=== PATIENT | male | born 1935 | race Caucasian/White ===

== ENCOUNTER 2019-03-24 11:26 | Inpatient (IN) | payer MEDICARE, OTHER ==
[~2019-03-24] VITALS: Ht 162.6 cm; Wt 91.1 kg
[2019-03-24 13:16] VITALS: BP 141/72
[2019-03-24] MEDS ORDERED: GLUCOSE 4 GM CHEW TABLET PO PRN (14:00)
[2019-03-24] MEDS ORDERED: GLUCAGON FOR INJ 1 MG VIAL (J1610) SC PRN (14:00)
[2019-03-24] MEDS ORDERED: DEXTROSE 50% 50 ML SYRINGE IV PRN (14:00)
--- NOTE | 2019-03-24 14:19 | HPE ---
DATE OF ADMISSION: 03/24/2019 PRIMARY CARE PROVIDER: Tito Santana MD ATTENDING PHYSICIAN: Hospitalist group. NURSE FIRST AID: Jesus Reyez MD, vascular surgery. CHIEF COMPLAINT: Ischemic 5th toe right foot with cellulitis. HISTORY: Patient is transferred to [facility] for vascular surgery consultation. He has ischemic right 5th toe with secondary cellulitis for which he is currently on Unasyn. He has a medical history significant for aortic valve prosthesis, his records from [facility] do not indicate whether it is mechanical or vinyl prosthetic. He is on warfarin therapy. He has a history of atrial fibrillation, chronic obstructive pulmonary disease (COPD), hyperlipidemia, history of gout, type 2 diabetes. SURGICAL HISTORY: Pacemaker, atrioventricular (AV) job ablation. SOCIAL HISTORY: Half-pack per day smoker. FAMILY HISTORY: Both parents had heart disease. MEDICATIONS: Current medications from [facility] are: - Unasyn 1.5 grams every 6 hours - Protonix 40 mg daily - simvastatin 20 mg daily - allopurinol 300 mg daily - Lopressor 25 mg twice a day - amlodipine 5 mg daily - Spiriva inhalation daily - magnesium oxide 400 mg daily - levothyroxine 50 mcg daily - warfarin 3 mg daily - glimepiride 2 mg daily - Bumex 1 mg daily - potassium chloride 20 mEq twice a day - sliding scale insulin ALLERGIES: None known. REVIEW OF SYSTEMS: No fever, chills, night sweats, chest pain, shortness of breath, or orthopnea. PHYSICAL EXAMINATION: He is alert, conversant, no distress. Pupils equal, round, reactive to light. Tympanic membranes (TMs) and oropharynx benign. Neck: No masses. Lungs: Clear. Heart: Irregular rate and rhythm, 1/6 systolic ejection murmur. Abdomen: Soft, nontender, no masses. Trace peripheral edema. He has no palpable pulse in his right foot. There is an ischemic ulcer of the right 5th toe. There is erythema extending to the forefoot. LABORATORY DATA: All of the [facility] labs are pending. He had a CT of the right foot that showed no signs of osteomyelitis. He had a CT of the chest done, showed a small layering right pleural effusion, emphysema, cardiomegaly, 5.5 cm ascending thoracic aortic aneurysm, larger than previous CT scan from 08/20/2015 where it was 5.2 cm. Today his white count at [facility] was 6.9, hemoglobin 12.7, platelets 174, sodium 141, potassium 3.4, BUN 24, creatinine 1.4, GFR in the 50s, hemoglobin A1c was 8.2%, magnesium 1.9. PTT today was 2.3, yesterday it was 2.7, the day before 2.59. He has been maintained on his warfarin 3 mg daily. Cultures shows coagulase negative Staphylococcus. EKG today showed paced rhythm. IMPRESSION: 1. Ischemic right 5th toe secondary to cellulitis. Dr. Reyez has been consulted. We have communicated. Would like him nothing by mouth after midnight. Hold his warfarin. He will see him in consultation. I have changed the antibiotic to ceftaroline, better coverage of methicillin-resistant Staphylococcus aureus (MRSA). 2. Hypertensive heart disease. Continue his current medications. 3. Diabetes. Holding his glimepiride. He will be sliding scale insulin with finger stick blood sugar coverage for now. He could restart his glimepiride as an outpatient. 4. Hyperlipidemia. Continue his simvastatin 20 mg daily. 5. Atrial fibrillation. Rate is controlled with metoprolol. He is status post ablation with pacemaker. His warfarin is on hold for vascular procedure. Daily INRs have been ordered. Hospitalist group will be providing his inpatient medical care.
[2019-03-24 14:26] LABS: HEMATOCRIT 40.4 % (42.0-52.0); HEMOGLOBIN 13.3 g/dl (13.5-17.5); MEAN CORPUSCULAR HEMOGLOBIN 30.8 pg (27.0-33.0); MEAN CORPUSCULAR HGB CONC 32.9 g/dl (32.0-36.5); MEAN CORPUSCULAR VOLUME 93.5 fl (80.0-96.0); PLATELET COUNT, AUTOMATED 171 10^3/uL (150-450); RED BLOOD COUNT 4.32 10^6/uL (4.30-6.10); WHITE BLOOD COUNT 7.5 10^3/uL (4.0-10.0)
[2019-03-24 14:41] LABS: INR 2.34; PROTHROMBIN TIME 25.5 SECONDS (11.8-14.0)
[2019-03-24 14:59] LABS: ALBUMIN 3.2 GM/DL (3.2-5.2); BILIRUBIN,TOTAL 1.7 MG/DL (0.2-1.0); CALCIUM LEVEL 8.9 MG/DL (8.8-10.2); CREATININE FOR GFR 1.6 MG/DL (0.70-1.30); GLOMERULAR FILTRATION RATE 43.8 (>35); POTASSIUM SERUM 3.4 MEQ/L (3.5-5.1); TOTAL PROTEIN 6.1 GM/DL (6.4-8.2)
--- NOTE | 2019-03-24 15:45 | CR.PDOC ---
General Date of Consultation: Mar 24, [address] Reyez HPI: 84 year old M transferred from [facility] with ischemic 5th toe right foot with cellulitis for vascular surgery evaluation. Vascular surgery consultation is requested. Pt states he is unaware how long his toes have been discolored. States "I don't know why I am here". Does not see podiatry or wound care. States he has no complaints, denies foot or leg pain. Denies any fevers, chills, weakness, fatigue, Headache, Chest Pain, Shortness of breath, cough, palpitations, abdominal pain, N/V/D or changes in bowel or mihir dder habits. PMHx: Hypertension GERD Gout DM Hypothyroidism Dyslipidemia COPD Hypomagnesemia Atrial fibrillation. On Coumadin PSHX: Aortic valve replacement Pacemaker, atrioventricular (AV) job ablation. SOCHX: Tobacco use: pt states he quit ETOH: states "doesn't keep track" how much per day FAMHX: History of heart disease. ROS: As noted in HPI, otherwise 11pt ROS of systems reviewed and unremarkable. Pt is noted to be a poor historian. PE: GEN: 84yoM No acute distress. Alert and oriented x 3. HEENT: Normocephalic, atraumatic. Moist mucous membranes. CHEST: Regular rate and rhythm, +S1, +S2 LUNGS: Clear to auscultation bilaterally. ABD: Round, soft, non-tender, non-distended. EXT: B/L lower extremity edema appreciated. Rt foot with erythema extending to mid foot area, Rt 4th and 5th toe with dark discoloration and gangrenous changes noted. Pulses are non palpable, monophasic PT/DP with Doppler NEURO: Alert and oriented x 3. No focal deficits appreciated. CAH CT of the right foot that showed no signs of osteomyelitis. Admission labs pending BLE arterial US pending. A&P: 1. Rt foot wound/ischemic 5th toe right foot with cellulitis. Admission labs pending. IV antibiotics as per medicine svc. Request BLE arterial US. Dr Reyez to review and examine Pt, possibly consider angiogram pending results. Vital Signs/I&O Vital Signs Date Time Temp Pulse Resp B/P (MAP) Pulse Ox O2 Delivery O2 Flow Rate FiO2 03/24/19 13:16 98.2 70 18 141/72 (95) 91 Laboratory Data Labs 24H Laboratory Tests 2 03/24/19 14:17: Nucleated Red Blood Cells % (auto) 0.0 CBC/BMP Laboratory Tests 03/24/19 14:17 Red Blood Count 4.32, Mean Corpuscular Volume 93.5, Mean Corpuscular Hemoglobin 30.8, Mean Corpuscular Hemoglobin Concent 32.9, Red Cell Distribution Width 15.2 H Allergies Coded Allergies: No Known Allergies (Verified Allergy, Unknown, 03/24/19) Home Medications Scheduled Allopurinol (Zyloprim) 300 Mg Tablet, 300 MG PO DAILY, (Reported) Amlodipine Besylate (Amlodipine Besylate) 5 Mg Tablet, 5 MG PO DAILY, (Reported) Ampicillin Sodium/Sulbactam Na (Ampicillin-Sulbactam 1.5 gm Vl) 1.5 Gm Vial, 1 INJ IV Q8H, (Reported) GIVEN AT [facility] Bumetanide (Bumetanide) 0.5 Mg Tablet, 1 MG PO DAILY, (Reported) Calcitriol (Calcitriol) 0.25 Mcg Capsule, 0.25 MCG PO 3XW, (Reported) MON/THU/THU Donepezil HCl (Donepezil HCl) 5 Mg Tablet, 5 MG PO DAILY, (Reported) Enoxaparin Sodium (Lovenox) 30 Mg/0.3 Ml Syringe, 30 MG SC DAILY, (Reported) GIVE AT [facility] Glimepiride (Glimepiride) 2 Mg Tablet, 2 MG PO DAILY, (Reported) WITH FOOD Levothyroxine Sodium (Levothyroxine Sodium) 100 Mcg Tablet, 100 MCG PO QAM, (Reported) Magnesium Oxide (Magnesium Oxide) 400 Mg Tablet, 400 MG PO DAILY, (Reported) GIVEN AT [facility] Memantine HCl (Memantine HCl) 5 Mg Tablet, 5 MG PO BID, (Reported) Metoprolol Tartrate (Metoprolol Tartrate) 25 Mg Tablet, 25 MG PO BID, (Reported) Pantoprazole Sodium (Pantoprazole Sodium) 40 Mg Tablet.dr, 40 MG PO DAILY, (Reported) GIVEN AT [facility] Potassium Chloride (Potassium Chloride) 10 Meq Capsule.er, 20 MEQ PO BID, (Reported) Prednisone (Prednisone) 5 Mg Tablet, 5 MG PO Q2D, (Reported) Simvastatin (Simvastatin) 20 Mg Tablet, 20 MG PO QHS, (Reported) Tiotropium [place] Monohydrate (Spiriva) 18 Mcg Cap.w.dev, 18 MCG INH DAILY, (Reported) Warfarin Sodium (Warfarin Sodium) 3 Mg Tablet, 3 MG PO QPM, (Reported) Scheduled PRN Insulin Human Lispro (Humalog) 100 Unit/1 Ml Vial, 1 DOSE SC AC PRN for BLOOD COHEN GAR, (Reported) PER SLIDING SCALE. GIVEN AT [facility] Attending Note Attending Note VASCULAR SURGICAL ATTENDING NOTE: Dr. Sherrill Reyez M.D. The patient was seen on 03/24/19 at 04:34. ASSESSMENT: Patient is an 84-year-old male with right foot cellulitis, swelling and ulceration and gangrene of the right fifth toe. Patient has a history of diabetes mellitus, hypertension, previous tobacco use with smoking of cigarettes, chronic renal insufficiency, venous valvular insufficiency, COPD, hypothyroidism, dementia, atrial fibrillation requiring Coumadin, aortic valve replacement, AV job ablation, pacemaker placement and continued alcohol use. Patient has nonpalpable pulses distally and underwent an ultrasound of his right lower extremity arterial inflow which shows femoral-popliteal arterial atherosclerotic occlusive disease and tibial peroneal arterial atherosclerotic occlusive disease. Patient started on wall Alfredo Lazo was present during the patient evaluation. PLAN: Patient will require right lower extremity angiogram with possible angioplasty, stent and/or atherectomy. Patient will require hydration pre-and p ost procedure due to his chronic renal insufficiency and diabetes mellitus with probable diabetic nephropathy. Once the angiogram is performed in the results of the angiogram evaluated the decision will be made whether to perform a right fifth toe amputation or allow the right fifth toe ulcers to heal with wound care. Patient should continue on IV antibiotic therapy for his right foot cellulitis and right fifth toe ulceration. Patient will be hydrated and his creatinine monitored closely.The procedure was described and explained in detail to the patient and his daughter in law, Alfredo Lazo, including drawing of pictures demonstrating the procedure and pertinent anatomy. Risks, benefits and alternative treatment options were discussed with the patient. Alternative treatment options included but were not limited to no intervention. Benefits include but were not limited to evaluation of arterial inflow to the lower extremities with possible intervention improving blood flow to the lower extremities. Risks included but were not limited to infection, bleeding, renal failure requiring hemodialysis, retroperitoneal hematoma, possible need for surgical intervention, possible requirement for transfusion of blood products, contrast dye reaction, allergic reaction and/or complication from the prepping and draping materials, sedation related complication, scarring of the skin, b ruising, nerve injury, anesthetic complications, cerebrovascular accident, myocardial infarction, pulmonary embolus, deep venous thrombosis, loss of limb, loss of life, poor satisfaction and poor outcome. Risks of not performing the procedure included but were not limited to worsening of current symptoms, worsening of atherosclerotic arterial occlusive disease resulting in possible limb loss and . Patient's questions were answered. Patient voices understanding of these risks, benefits and alternative treatment options. Patient voices acceptance of the risks associated with angiography with possible angioplasty, stent and/or atherectomy and agrees to proceed with the procedure excepting the associated risks of the procedure. No guarantees or promises were made to the patient or his family regarding the results or outcome of the procedure. The patient suffers from dementia and is unable to give consent and consent will be obtained from his son prior to the procedure. Estuardo Jacob was the attending vascular surgeon for this patient encounter. The patient was seen, examined, interviewed and evaluated independently by Dr. Brendan Reyez M.D. Dr. Brendan Reyez M.D. was fully available during the consultation evaluation. All aspects of the patient interview, examination, medical decision making process, and medical care plan development were reviewed and approved by Dr. Brendan Reyez M.D. Dr. Brendan Reyez M.D. is aware and concurs with the plan as stated in the body of this note and will attest to such by his/her cosignature. Richelle Waters Mar 24, 2019 14:31 Gen Reyez MD Mar 25, 2019 09:40
[2019-03-24] MEDS ORDERED: PRED5TA PO (15:52)
[2019-03-24] MEDS ORDERED: MEMA5TAB PO (15:56)
[2019-03-24] MEDS ORDERED: SIMV20TA2 PO (15:56)
[2019-03-24] MEDS ORDERED: BUME0.5T2 PO (15:56)
[2019-03-24] MEDS ORDERED: METO1TAB87 PO (15:56)
[2019-03-24] MEDS ORDERED: ZYLO300T6 PO (15:56)
[2019-03-24] MEDS ORDERED: TIOT18INH INH (15:56)
[2019-03-24] MEDS ORDERED: AMLO5TAB6 PO (15:56)
[2019-03-24] MEDS ORDERED: CALC1CAP31 PO (16:00)
[2019-03-24] MEDS ORDERED: POTA10CA32 PO (16:00)
[2019-03-24] MEDS ORDERED: WARF-58 PO (16:00)
[2019-03-24] MEDS ORDERED: GLIM2TAB29 PO (16:00)
[2019-03-24] MEDS ORDERED: DONE10TA90 PO (16:00)
[2019-03-24] MEDS ORDERED: INSUHUMDS SC (16:06)
[2019-03-24] MEDS ORDERED: LOVE1INJ2 SC (16:06)
[2019-03-24] MEDS ORDERED: AMPI1INJ IV (16:06)
[2019-03-24] MEDS ORDERED: PANT40TA3 PO (16:06)
[2019-03-24] MEDS ORDERED: MAGN400T PO (16:09)
[2019-03-24] MEDS ORDERED: SYNT50TA PO (16:12)
[2019-03-24] MEDS ORDERED: DONE5TAB82 PO (16:24)
[2019-03-24] MEDS ORDERED: LEVO100T5 PO (16:24)
[2019-03-24 18:00] VITALS: BP 157/80
[2019-03-24] MEDS: CEFTAROLINE FOSAMIL 400 MG in D5W MINI-BAG PLUS 50 ML IV SCH (18:52)
[2019-03-24] MEDS: HumaLOG INSULIN (NovoLOG) PER UNIT SC SCH ×2 (18:52→21:00)
[2019-03-24] MEDS: SIMVASTATIN 20 MG TAB PO SCH (20:34)
[2019-03-24] MEDS: POTASSIUM CHLORIDE 10 MEQ SR TABLET PO SCH (20:34)
[2019-03-24] MEDS: METOPROLOL TART 25 MG TABLET PO SCH (20:35)
[2019-03-24 22:00] VITALS: BP 144/70
[2019-03-25] VITALS (7 sets, daily range): BP systolic 128–149; BP diastolic 63–86
[2019-03-25] MEDS: LEVOTHYROXINE 100MCG TABLET (0.1MG) PO SCH (05:24)
[2019-03-25] MEDS: CEFTAROLINE FOSAMIL 400 MG in D5W MINI-BAG PLUS 50 ML IV SCH ×2 (05:24→17:36)
[2019-03-25 06:45] LABS: HEMATOCRIT 39.2 % (42.0-52.0); HEMOGLOBIN 12.6 g/dl (13.5-17.5); MEAN CORPUSCULAR HGB CONC 32.1 g/dl (32.0-36.5); MEAN CORPUSCULAR VOLUME 93.3 fl (80.0-96.0); PLATELET COUNT, AUTOMATED 176 10^3/uL (150-450); WHITE BLOOD COUNT 6.4 10^3/uL (4.0-10.0)
[2019-03-25 06:55] LABS: INR 2.24; PROTHROMBIN TIME 24.6 SECONDS (11.8-14.0)
[2019-03-25 07:10] LABS: CALCIUM LEVEL 9.2 MG/DL (8.8-10.2); CREATININE FOR GFR 1.69 MG/DL (0.70-1.30); GLOMERULAR FILTRATION RATE 41.2 (>35)
[2019-03-25] MEDS: TIOTROPIUM INHALER/CAPSULE (SPIRIVA) INH SCH (07:18)
[2019-03-25] MEDS: HumaLOG INSULIN (NovoLOG) PER UNIT SC SCH ×4 (07:30→20:37)
[2019-03-25] MEDS: ALLOPURINOL 300 MG TAB PO SCH (07:58)
[2019-03-25] MEDS: POTASSIUM CHLORIDE 10 MEQ SR TABLET PO SCH ×2 (07:58→20:33)
[2019-03-25] MEDS: amLODIPine 5 MG TAB PO SCH (07:59)
[2019-03-25] MEDS: BUMETANIDE 1 MG TAB PO SCH (07:59)
[2019-03-25] MEDS: PANTOPRAZOLE 40MG TAB (PROTONIX) PO SCH (07:59)
[2019-03-25] MEDS: MAGNESIUM OXIDE 400 MG TAB (MAG-OX) PO SCH (07:59)
[2019-03-25] MEDS: METOPROLOL TART 25 MG TABLET PO SCH ×2 (08:00→20:33)
[2019-03-25] MEDS ORDERED: LIDOCAINE 2% MDV 20 ML VIAL As Ordered ONE (08:55)
[2019-03-25] MEDS ORDERED: PROTAMINE SULF INJ 50 MG/5 ML VIAL (J2720) As Ordered ONE (08:56)
[2019-03-25] MEDS ORDERED: MIDAZOLAM INJ 2 MG/2 ML VIAL (J2250) As Ordered ONE (08:56)
[2019-03-25] MEDS ORDERED: fentaNYL 100 MCG/2 ML INJECTION (J3010) As Ordered ONE (08:56)
[2019-03-25] MEDS ORDERED: BUPIVACAINE HCL 0.5% 10 ML VIAL As Ordered ONE (08:56)
[2019-03-25] MEDS ORDERED: diphenhydrAMINE INJ 50MG/ML VIAL (J1200) As Ordered ONE (08:57)
[2019-03-25] MEDS ORDERED: HEPARIN 1,000 UNITS/ML 10ML VIAL (FOR RADIOLOGY& DIALYSIS ONLY) As Ordered ONE (08:57)
[2019-03-25] MEDS ORDERED: ISOVUE-300 61% 50ML VIAL (Q9967) As Ordered ONE (08:57)
[2019-03-25] MEDS ORDERED: CALCITRIOL 0.25 MCG CAP (S0169) PO SCH (09:00)
--- NOTE | 2019-03-25 09:14 | ECGEPIP ---
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
[2019-03-25] MEDS ORDERED: NS 0.45% 1,000 ML IV SCH (13:00)
--- NOTE | 2019-03-25 13:17 | IPNPDOC ---
Date Seen The patient was seen on 03/25/19. Progress Note Vascular surgery. Dr. Reyez HPI: 84 year old M transferred from [facility] with ischemic 5th toe right foot with cellulitis for vascular surgery evaluation. Vascular surgery consultation is requested. Pt states he is unaware how long his toes have been discolored. States "I don't know why I am here". Does not see podiatry or wound care. States he has no complaints, denies foot or leg pain. Denies any fevers, chills, weakness, fatigue, Headache, Chest Pain, Shortness of breath, cough, palpitations, abdominal pain, N/V/D or changes in bowel or bladder habits. PMHx: Hypertension GERD Gout DM Hypothyroidism Dyslipidemia COPD Hypomagnesemia Atrial fibrillation. On Coumadin PSHX: Aortic valve replacement Pacemaker, atrioventricular (AV) job ablation. SOCHX: Tobacco use: pt states he quit ETOH: states "doesn't keep track" how much per day FAMHX: History of heart disease. ROS: As noted in HPI, otherwise 11pt ROS of systems reviewed and unremarkable. Pt is noted to be a poor historian. PE: GEN: 84yoM No acute distress. HEENT: Normocephalic, atraumatic. Moist mucous membranes. CHEST: Regular rate and rhythm, +S1, +S2 EXT: B/L lower extremity edema appreciated. Rt foot with erythema extending to mid foot area, Rt 4th and 5th toe with dark discoloration and gangrenous changes noted. Pulses are non palpable, monophasic PT/DP with Doppler NEURO: Alert and oriented x 3. No focal deficits appreciated. CAH CT of the right foot that showed no signs of osteomyelitis. A&P: 1. Rt foot wound/ischemic 5th toe right foot with cellulitis. IV antibiotics as per medicine svc. Angiogram RLE as per Dr Reyez 03/25/19 with stent SFA/Pop. Pt remains on Coumadin. Would recommend wound care referral to [place] (closer to pt) for contd mgmt of Rt foot wounds. OK for DC in AM from Vascular Surgery standpoint. VS, I&O, 24H, Fishbone Vital Signs/I&O Vital Signs Date Time Temp Pulse Resp B/P (MAP) Pulse Ox O2 Delivery O2 Flow Rate FiO2 03/25/19 12:45 98.0 70 17 138/86 (103) 94 2.0 I&O- Last 24 Hours up to 6 AM 03/25/19 06:00 Intake Total 420 ml Output Total 0 ml Balance 420 ml Laboratory Data 24H LABS Laboratory Tests 2 03/24/19 14:17: Nucleated Red Blood Cells % (auto) 0.0, Prothrombin Time 25.5H, Prothromb Time International Ratio 2.34, Activated Partial Thromboplast Time 42.0H, Anion Gap 6L, Glomerular Filtration Rate 43.8, Blood Urea Nitrogen 24H, Creatinine 1.60H, Sodium Level 137, Potassium Level 3.4L, Chloride Level 102, Carbon Dioxide Level 29, Calcium Level 8.9, Aspartate Amino Transf (AST/SGOT) 13, Alanine Aminotransferase (ALT/SGPT) 14, Alkaline Phosphatase 152H, Total Bilirubin 1.7H, Total Protein 6.1L, Albumin 3.2, Albumin/Globulin Ratio 1.10 03/24/19 18:01: Bedside Glucose (Misc Panel) 243H 03/24/19 20:46: Bedside Glucose (Misc Panel) 245H 03/25/19 05:30: Nucleated Red Blood Cells % (auto) 0.0, Prothrombin Time 24.6H, Prothromb Time International Ratio 2.24, Anion Gap 3L, Glomerular Filtration Rate 41.2, Blood Urea Nitrogen 25H, Creatinine 1.69H, Sodium Level 138, Potassium Level 4.0, Chloride Level 105, Carbon Dioxide Level 30, Calcium Level 9.2 03/25/19 12:01: Bedside Glucose (Misc Panel) 134H CBC/BMP Laboratory Tests 03/24/19 14:17 Red Blood Count 4.32, Mean Corpuscular Volume 93.5, Mean Corpuscular Hemoglobin 30.8, Mean Corpuscular Hemoglobin Concent 32.9, Red Cell Distribution Width 15.2 H, Calcium Level 8.9, Aspartate Amino Transf (AST/SGOT) 13, Alanine Aminotransferase (ALT/SGPT) 14, Alkaline Phosphatase 152 H, Total Bilirubin 1.7 H, Total Protein 6.1 L, Albumin 3.2 03/25/19 05:30 Red Blood Count 4.20 L, Mean Corpuscular Volume 93.3, Mean Corpuscular Hemoglobin 30.0, Mean Corpuscular Hemoglobin Concent 32.1, Red Cell Distribution Width 15.1 H, Calcium Level 9.2 Richelle Waters Mar 25, 2019 13:17
--- NOTE | 2019-03-25 16:57 | IPNPDOC ---
Text Note Date of Service The patient was seen on 03/25/19. NOTE SUBJECTIVE: Mr. Lazo is principally oriented to self. He does not fully understand why he is in the hospital. Patient is found to have some peripheral vascular disease; he has right fifth toe gangrene and cellulitis to the right foot. The patient denies any pain, discomfort or disability associated with this. He does not appear to be aware of it. OBJECTIVE: Please see vital signs below HENT: Neck is supple with no adenopathy or thyromegaly, oral mucosa is moist. Dentition is adequate. Cardiovascular: Regular rate and rhythm, normal S1 and S2, no appreciable murmur. Respiratory: Clear to auscultation, no rhonchi, rales or wheezes. Abdomen: Soft, nontender, notable central obesity Extremities: Pedal pulses palpable to the left foot, it is not palpable to the right foot, the right fifth toe is discolored and gangrenous to appearance, the right dorsum of the foot appears dusky, the foot overall is warm to touch. Neuro: The patient does not demonstrate any focal neuromotor deficit, he does appear to have cognition deficit ASSESSMENT/PLAN: The patient appears to have right fifth toe gangrene with cellulitis. The patient has undergone evaluation by arterial ultrasound and then is seen by the vascular surgery service for angiogram and possible intervention. He will remain on anticoagulation. The patient has underlying atrial fibrillation. He also has had aortic valve replacement. INR is 2.4. We are continuing his Coumadin and Lovenox until his INR is more appropriate for valve replacement. We would prefer that it was greater than 3. The patient is on sliding scale insulin for his zir-jsextmh-juhxqrtic diabetes mellitus. The patient also has a history of COPD and is currently requiring oxygen. Post procedure. We will make sure that nebulization treatments are available as needed. VS,Fishbone, I+O VS, Fishbone, I+O Laboratory Tests 03/25/19 05:30 Red Blood Count 4.20 L, Mean Corpuscular Volume 93.3, Mean Corpuscular Hemoglobin 30.0, Mean Corpuscular Hemoglobin Concent 32.1, Red Cell Distribution Width 15.1 H, Calcium Level 9.2 Vital Signs Date Time Temp Pulse Resp B/P (MAP) Pulse Ox O2 Delivery O2 Flow Rate FiO2 03/25/19 14:45 97.8 70 17 128/77 (95) 91 2.0 I&O- Last 24 Hours up to 6 AM 03/25/19 06:00 Intake Total 420 ml Output Total 0 ml Balance 420 ml PATRICIA FLORES MD Mar 25, 2019 16:57
--- NOTE | 2019-03-25 16:58 | REPVR ---
EXAM: US Duplex Bilateral Lower Extremity Arteries EXAM DATE/TIME: 03/24/2019 3:37 PM CLINICAL HISTORY: 84 years old, male; Condition or disease; Other: RT lower extremity wound; Additional info: Le wound TECHNIQUE: Imaging protocol: Bilateral Real-time ultrasound scan of the arteries of the bilateral lower extremities with 2-D biggs scale, color Doppler flow and spectral waveform analysis. COMPARISON: No relevant prior studies available. FINDINGS: Right common femoral artery: Mild atherosclerotic disease. No occlusion or significant stenosis. Normal waveform. Right profunda femoris artery: Mild atherosclerotic disease. No occlusion or significant stenosis. Normal waveform. Right superficial femoral artery: Mild to moderate atherosclerotic disease. Significant velocity increase between the [employer]ER and proximal femoral artery consistent with a 20-49% stenosis. Less than 20% stenosis demonstrated in the mid and distal femoral artery. No occlusion or high-grade stenosis. Normal waveform. Right popliteal artery: Moderate atherosclerotic disease. No occlusion or significant stenosis. Monophasic Right calf/foot arteries: Occlusion of the proximal and mid UPHOLSTERER INSIDE with some collateral demonstrated distally. Moderate atherosclerotic disease demonstrated in the tibioperoneal trunk, visualize MARIELA and peroneal arteries. Monophasic waveform. Dorsalis pedis artery is nonvisualized. Left common femoral artery: Moderate atherosclerotic changes. No occlusion or significant stenosis. Normal waveform. Left profunda femoris artery: Mild to moderate atherosclerotic changes. No occlusion or significant stenosis. Biphasic waveform. Left superficial femoral artery: Diffuse mild to moderate atherosclerotic changes with a velocity increase between the proximal and mid segments consistent with a 20-49% stenosis. No occlusion or high-grade stenosis. Biphasic and triphasic waveforms. Left popliteal artery: No occlusion or significant stenosis. Left calf/foot arteries: Diffuse atherosclerotic changes. The Distal left MARIELA occluded with the dorsalis vein is visualized via collateral flow. No occlusion or significant stenosis. Biphasic waveform. Other findings: Biphasic triphasic waveforms. IMPRESSION: 1. Diffuse atherosclerotic changes in the leg arteries bilaterally. 2. 20-40% stenosis in proximal superficial femoral artery on the right and less than 20% stenoses distally. 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 3. 20-49% stenosis in the proximal to mid segment of the left superficial femoral artery. Occlusion of the distal left anterior tibial artery collateral flow to the dorsalis pedis artery. Electronically signed by: Liu Medina On 03/25/2019 16:57:45 PM
[2019-03-25] MEDS ORDERED: IPRATROPIUM 0.5MG/ALBUTEROL 2.5MG INH SOL UD 3ML (DUONEB)(J7620) NEB PRN (17:00)
[2019-03-25] MEDS ORDERED: WARFARIN SOD 3 MG TAB PO SCH (17:00)
[2019-03-25] MEDS: DONEPEZIL 5 MG TAB PO SCH (17:36)
[2019-03-25] MEDS: MEMANTINE 5MG TABLET (NAMENDA) PO SCH (20:33)
[2019-03-25] MEDS: SIMVASTATIN 20 MG TAB PO SCH (20:33)
[2019-03-26 02:00] VITALS: BP 143/81
[2019-03-26 06:00] VITALS: BP 134/73
[2019-03-26 06:03] LABS: HEMATOCRIT 36.4 % (42.0-52.0); HEMOGLOBIN 11.9 g/dl (13.5-17.5); MEAN CORPUSCULAR HEMOGLOBIN 30.6 pg (27.0-33.0); MEAN CORPUSCULAR HGB CONC 32.7 g/dl (32.0-36.5); MEAN CORPUSCULAR VOLUME 93.6 fl (80.0-96.0); PLATELET COUNT, AUTOMATED 169 10^3/uL (150-450); RED BLOOD COUNT 3.89 10^6/uL (4.30-6.10); WHITE BLOOD COUNT 7.8 10^3/uL (4.0-10.0)
[2019-03-26 06:14] LABS: INR 1.99; PROTHROMBIN TIME 22.4 SECONDS (11.8-14.0)
[2019-03-26] MEDS: CEFTAROLINE FOSAMIL 400 MG in D5W MINI-BAG PLUS 50 ML IV SCH ×2 (06:15→17:23)
[2019-03-26] MEDS: LEVOTHYROXINE 100MCG TABLET (0.1MG) PO SCH (06:15)
[2019-03-26 06:29] LABS: CALCIUM LEVEL 8.8 MG/DL (8.8-10.2); CREATININE FOR GFR 1.66 MG/DL (0.70-1.30)
[2019-03-26] MEDS: TIOTROPIUM INHALER/CAPSULE (SPIRIVA) INH SCH (07:12)
[2019-03-26] MEDS: HumaLOG INSULIN (NovoLOG) PER UNIT SC SCH ×4 (07:30→21:00)
[2019-03-26] MEDS ORDERED: ENOXAPARIN 30 MG/0.3 ML SYR (J1650) SC SCH (09:00)
[2019-03-26] MEDS: MAGNESIUM OXIDE 400 MG TAB (MAG-OX) PO SCH (09:48)
[2019-03-26] MEDS: DONEPEZIL 5 MG TAB PO SCH (09:48)
[2019-03-26] MEDS: POTASSIUM CHLORIDE 10 MEQ SR TABLET PO SCH ×2 (09:48→21:39)
[2019-03-26] MEDS: BUMETANIDE 1 MG TAB PO SCH (09:48)
[2019-03-26] MEDS: PANTOPRAZOLE 40MG TAB (PROTONIX) PO SCH (09:49)
[2019-03-26] MEDS: ALLOPURINOL 300 MG TAB PO SCH (09:49)
[2019-03-26] MEDS: MEMANTINE 5MG TABLET (NAMENDA) PO SCH ×2 (09:49→21:39)
[2019-03-26] MEDS: amLODIPine 5 MG TAB PO SCH (09:50)
[2019-03-26] MEDS: METOPROLOL TART 25 MG TABLET PO SCH ×2 (09:51→21:40)
[2019-03-26 10:00] VITALS: BP 138/74
--- NOTE | 2019-03-26 11:22 | IPNPDOC ---
Text Note Date of Service The patient was seen on 03/26/19. NOTE SUBJECTIVE: Mr. Lazo is still not aware of or understanding of the fact that he has gangrene to his right fourth and fifth toes. He does not have any pain or discomfort. OBJECTIVE: Please see below for vital sign HENT: Neck is supple with no adenopathy or thyromegaly, oral mucosa is moist. Dentition is adequate. Cardiovascular: Regular rate and rhythm, normal S1 and S2, no appreciable murmur. Respiratory: Clear to auscultation, no rhonchi, rales or wheezes. Abdomen: Soft, nontender, notable central obesity Extremities: Pedal pulses palpable to the left foot, it is not palpable to the right foot, the right fourth and fifth toe is discolored and gangrenous to appearance with dryness, some eschar and minimal drainage Neuro: The patient does not demonstrate any focal neuromotor deficit, he does appear to have cognition deficit IMAGING: Lower extremity arterial Doppler IMPRESSION: 1. Diffuse atherosclerotic changes in the leg arteries bilaterally. 2. 20-40% stenosis in proximal superficial femoral artery on the right and less than 20% stenoses distally. 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 3. 20-49% stenosis in the proximal to mid segment of the left superficial femoral artery. Occlusion of the distal left anterior tibial artery collateral flow to the dorsalis pedis artery. Electronically signed by: Liu Medina On 03/25/2019 16:57:45 PM ASSESSMENT/PLAN: 1.The patient appears to have right fourth fifth toe gangrene with cellulitis. The patient has undergone evaluation by arterial ultrasound and then is seen by the vascular surgery service for angiogram and possible intervention. 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 He will remain on anticoagulation. 2. Atrial fibrillation. He also has had aortic valve replacement. INR is 1.99 today. We are continuing his Coumadin and Lovenox until his INR is more appropriate for valve replacement. We would prefer that it was greater than 3. 2. NIDDM The patient is on sliding scale insulin for his uge-hnyiajg-[id number] diabetes mellitus. The patient also has a history of COPD and was currently requiring o xygen post procedure. We will make sure that nebulization treatments are available as needed. VS,Fishbone, I+O VS, Fishbone, I+O Laboratory Tests 03/26/19 05:09 Red Blood Count 3.89 L, Mean Corpuscular Volume 93.6, Mean Corpuscular Hemoglobin 30.6, Mean Corpuscular Hemoglobin Concent 32.7, Red Cell Distribution Width 15.4 H, Calcium Level 8.8 Vital Signs Date Time Temp Pulse Resp B/P (MAP) Pulse Ox O2 Delivery O2 Flow Rate FiO2 03/26/19 10:00 97.6 69 17 138/74 (95) 92 2.0 I&O- Last 24 Hours up to 6 AM 03/26/19 06:00 Intake Total 580 ml Output Total 665 ml Balance -85 ml PATRICIA FLORES MD Mar 26, 2019 11:22
[2019-03-26 14:00] VITALS: BP 136/76
[2019-03-26] MEDS ORDERED: WARFARIN SOD 4 MG TAB PO SCH (17:00)
[2019-03-26 18:00] VITALS: BP 144/65
[2019-03-26] MEDS: ENOXAPARIN 40 MG/0.4 ML SYRINGE (J1650) SC SCH (21:39)
[2019-03-26] MEDS: SIMVASTATIN 20 MG TAB PO SCH (21:40)
[2019-03-26 22:00] VITALS: BP 152/86
[2019-03-27 02:00] VITALS: BP 132/73
[2019-03-27] MEDS: LEVOTHYROXINE 100MCG TABLET (0.1MG) PO SCH (05:41)
[2019-03-27] MEDS: CEFTAROLINE FOSAMIL 400 MG in D5W MINI-BAG PLUS 50 ML IV SCH (05:41)
[2019-03-27 06:00] VITALS: BP 132/73
[2019-03-27 06:12] LABS: HEMATOCRIT 37.2 % (42.0-52.0); HEMOGLOBIN 12.2 g/dl (13.5-17.5); MEAN CORPUSCULAR HGB CONC 32.8 g/dl (32.0-36.5); MEAN CORPUSCULAR VOLUME 94.7 fl (80.0-96.0); PLATELET COUNT, AUTOMATED 160 10^3/uL (150-450); RED BLOOD COUNT 3.93 10^6/uL (4.30-6.10); WHITE BLOOD COUNT 6.2 10^3/uL (4.0-10.0)
[2019-03-27 06:23] LABS: INR 1.95
[2019-03-27 06:40] LABS: CALCIUM LEVEL 9.1 MG/DL (8.8-10.2); CREATININE FOR GFR 1.74 MG/DL (0.70-1.30); GLOMERULAR FILTRATION RATE 39.8 (>35)
[2019-03-27] MEDS: TIOTROPIUM INHALER/CAPSULE (SPIRIVA) INH SCH (07:12)
[2019-03-27] MEDS: HumaLOG INSULIN (NovoLOG) PER UNIT SC SCH ×2 (07:27→12:15)
[2019-03-27] MEDS: PANTOPRAZOLE 40MG TAB (PROTONIX) PO SCH (08:30)
[2019-03-27] MEDS: BUMETANIDE 1 MG TAB PO SCH (08:30)
[2019-03-27] MEDS: POTASSIUM CHLORIDE 10 MEQ SR TABLET PO SCH (08:30)
[2019-03-27] MEDS: MAGNESIUM OXIDE 400 MG TAB (MAG-OX) PO SCH (08:30)
[2019-03-27 08:31] VITALS: BP 117/60
[2019-03-27] MEDS: amLODIPine 5 MG TAB PO SCH (08:31)
[2019-03-27] MEDS: MEMANTINE 5MG TABLET (NAMENDA) PO SCH (08:31)
[2019-03-27] MEDS: ALLOPURINOL 300 MG TAB PO SCH (08:31)
[2019-03-27] MEDS: ENOXAPARIN 40 MG/0.4 ML SYRINGE (J1650) SC SCH (08:31)
[2019-03-27] MEDS: METOPROLOL TART 25 MG TABLET PO SCH (08:31)
[2019-03-27] MEDS: DONEPEZIL 5 MG TAB PO SCH (08:31)
[2019-03-27 10:00] VITALS: BP 117/62
[2019-03-27] MEDS ORDERED: AUGM875T28 PO (11:50)
[2019-03-27] MEDS ORDERED: COUM1TAB17 PO (11:50)
[2019-03-27] MEDS ORDERED: WARFARIN SOD 5 MG TAB PO SCH (17:00)
--- NOTE | 2019-03-27 20:27 | DS.PDOC ---
Discharge Summary General Date of Admission Mar 24, 2019 at 13:16 Date of Discharge March 27, 2019 Specialist/Consultants Involve: Gen Reyez MD Specialist/Consultants Involve Richelle DUGGAN Discharge Summary PROCEDURES PERFORMED DURING STAY: [Right lower extremity angiogram with stent placement to SFA/pop]. ADMITTING DIAGNOSES: 1. [Right fourth and fifth toe ischemia with gangrene]. DISCHARGE DIAGNOSES: 1. [Right fourth and fifth toe gangrene, valvular heart disease with history of aortic valve replacement, chronic atrial fibrillation, COPD, dyslipidemia, gout, alp-nclswmg-bmcsymesm diabetes mellitus, dementia, hypothyroidism]. COMPLICATIONS/CHIEF COMPLAINT: Gangrene Of Right Fourth And Fifth Toes. HISTORY OF PRESENT ILLNESS/HOSPITAL COURSE: [This is an 84 year-old male who received is a transfer from an outlying facility. He was found to have an ischemic right fourth and fifth toe with cellulitis. It also had the appearance of gangrene. The patient was admitted to the telemetry floor. He underwent evaluation initially by arterial ultrasound which showed vascular occlusions. The patient then underwent intervention with arteriogram and subsequent stent placement to the SFA/pop. The patient also has valvular heart disease. He had already been on Coumadin therapy. He was noted to be subtherapeutic for valvular disease, and so he received in addition bridging therapy with Lovenox during the hospital stay. He was then just on Coumadin at discharge. Note was made of the patient having notable dementia. He was unable to tell us why he was in the hospital or what procedure he had had and was generally annoyed.]. DISCHARGE MEDICATIONS: Please see below. ALLERGIES: Please see below. PHYSICAL EXAMINATION ON DISCHARGE: VITAL SIGNS: Please see below. HENT: Neck is supple with no adenopathy or thyromegaly, oral mucosa is moist. Dentition is adequate. Cardiovascular: Regular rate and rhythm, normal S1 and S2, no appreciable murmur. Respiratory: Clear to auscultation, no rhonchi, rales or wheezes. Abdomen: Soft, nontender, notable central obesity Extremities: Pedal pulses palpable to the left foot, it is not palpable to the right foot, the right fourth and fifth toe is discolored and gangrenous to appe arance with dryness, some eschar and minimal drainage Neuro: The patient does not demonstrate any focal neuromotor deficit, he does appear to have cognition deficit LABORATORY DATA: Please see below. IMAGING: Arterial ultrasound [ IMPRESSION: 1. Diffuse atherosclerotic changes in the leg arteries bilaterally. 2. 20-40% stenosis in proximal superficial femoral artery on the right and less than 20% stenoses distally. 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 3. 20-49% stenosis in the proximal to mid segment of the left superficial femoral artery. Occlusion of the distal left anterior tibial artery collateral flow to the dorsalis pedis artery. ] PROGNOSIS: ACTIVITY: [As tolerated]. DIET: [Consistent carbohydrate] DISCHARGE PLAN: [The patient is to be discharged to home. He will follow-up with his primary care provider for INR monitoring. He will also need referral to the [facility]. Additionally, he will be following up with Dr. Reyez in 1 week. Family members will be helping him do this as he appears to pizano ve some dementia.] DISPOSITION: 01 Home, Self-Care. DISCHARGE INSTRUCTIONS: 1. . ITEMS TO FOLLOWUP ON ON OUTPATIENT: 1. . DISCHARGE CONDITION: [Stable]. TIME SPENT ON DISCHARGE: Greater than [40] minutes. Vital Signs/I&Os Vital Signs Date Time Temp Pulse Resp B/P (MAP) Pulse Ox O2 Delivery O2 Flow Rate FiO2 03/27/19 14:41 94 03/27/19 11:35 2.0 03/27/19 10:00 97.5 71 18 117/62 (80) I&O- Last 24 Hours up to 6 AM 03/27/19 06:00 Intake Total 740 ml Output Total 375 ml Balance 365 ml Laboratory Data Labs 24H Laboratory Tests 2 03/26/19 20:21: Bedside Glucose (Misc Panel) 156H 03/27/19 05:32: Nucleated Red Blood Cells % (auto) 0.0, Prothrombin Time 22.0H, Prothromb Time International Ratio 1.95, Anion Gap 2L, Glomerular Filtration Rate 39.8, Blood Urea Nitrogen 26H, Creatinine 1.74H, Sodium Level 139, Potassium Level 4.0, Chloride Level 107, Carbon Dioxide Level 30, Calcium Level 9.1 03/27/19 11:57: Bedside Glucose (Misc Panel) 172H CBC/BMP Laboratory Tests 03/27/19 05:32 Red Blood Count 3.93 L, Mean Corpuscular Volume 94.7, Mean Corpuscular Hemoglobin 31.0, Mean Corpuscular Hemoglobin Concent 32.8, Red Cell Distribution Width 15.7 H, Calcium Level 9.1 FSBS Laboratory Tests Test 03/26/19 20:21 03/27/19 11:57 Range/Units Bedside Glucose (Misc Panel) 156 172 83-110 MG/DL Discharge Medications Scheduled Allopurinol (Zyloprim) 300 Mg Tablet, 300 MG PO DAILY, (Reported) Amlodipine Besylate (Amlodipine Besylate) 5 Mg Tablet, 5 MG PO DAILY, (Reported) Amoxicillin/Potassium Clav (Augmentin 875-125 Tablet) 1 Each Tablet, 1 TAB PO BID Bumetanide (Bumetanide) 0.5 Mg Tablet, 1 MG PO DAILY, (Reported) Calcitriol (Calcitriol) 0.25 Mcg Capsule, 0.25 MCG PO 3XW, (Reported) THU/THU/THU Donepezil HCl (Donepezil HCl) 5 Mg Tablet, 5 MG PO DAILY, (Reported) Glimepiride (Glimepiride) 2 Mg Tablet, 2 MG PO DAILY, (Reported) WITH FOOD Levothyroxine Sodium (Levothyroxine Sodium) 100 Mcg Tablet, 100 MCG PO QAM, (Reported) Magnesium Oxide (Magnesium Oxide) 400 Mg Tablet, 400 MG PO DAILY, (Reported) GIVEN AT [facility] Memantine HCl (Memantine HCl) 5 Mg Tablet, 5 MG PO BID, (Reported) Metoprolol Tartrate (Metoprolol Tartrate) 25 Mg Tablet, 25 MG PO BID, (Reported) Potassium Chloride (Potassium Chloride) 10 Meq Capsule.er, 20 MEQ PO BID, (Reported) Prednisone (Prednisone) 5 Mg Tablet, 5 MG PO Q2D, (Reported) Simvastatin (Simvastatin) 20 Mg Tablet, 20 MG PO QHS, (Reported) Tiotropium [place] Monohydrate (Spiriva) 18 Mcg Cap.w.dev, 18 MCG INH DAILY, (Reported) Warfarin Sodium (Coumadin) 5 Mg Tablet, 5 MG PO QPM@1700 Scheduled PRN Insulin Human Lispro (Humalog) 100 Unit/1 Ml Vial, 1 DOSE SC AC PRN for BLOOD SUGAR, (Reported) PER SLIDING SCALE. GIVEN AT [facility] Allergies Coded Allergies: No Known Allergies (Verified Allergy, Unknown, 03/24/19) PATRICIA FLORES MD Mar 27, 2019 20:27
--- NOTE | 2019-04-09 09:26 | REPIR ---
DATE OF PROCEDURE: 03/25/2019 ATTENDING SURGEON: Dr. Sherrill Reyez REIKI PRACTITIONER: Kelly Ayers and Omero Franks PREOPERATIVE DIAGNOSES: Right foot cellulitis, right foot swelling, right lower extremity venous valvular insufficiency, dementia, chronic renal insufficiency, hypertension, diabetes mellitus, chronic obstructive pulmonary disease (COPD), hypothyroidism, right nonhealing fifth toe ulcer, atrial fibrillation, tobacco use, alcohol use. POSTOPERATIVE DIAGNOSES: Right foot cellulitis, right foot swelling, right lower extremity venous valvular insufficiency, dementia, chronic renal insufficiency, hypertension, diabetes mellitus, chronic obstructive pulmonary disease (COPD), hypothyroidism, right nonhealing fifth toe ulcer, atrial fibrillation, tobacco use, alcohol use. PROCEDURE: Left common femoral arterial cannulation, selective right common femoral artery catheter placement with right lower extremity angiogram, right popliteal artery angioplasty and stent with a 7 x 120 Bailey drug-eluting stent postdilated with a 6 x 200 balloon, right superficial femoral artery angioplasty and stent with a 7 x 120 drug-eluting Bailey stent postdilated with a 6 x 200 balloon, right common femoral artery angioplasty with 6 x 200 balloon, right superficial femoral artery angioplasty with 6 x 200 balloon. INDICATION: The patient is an 84-year-old male with nonhealing wounds of his right foot who will undergo an angiogram with possible angioplasty, stent and/or atherectomy. ANESTHESIA: Local with sedation with 2 mg Versed, 100 mcg of fentanyl, 20 mL of 2% lidocaine mixed with 0.5% Marcaine. FLUORO TIME: 12.2 minutes. CONTRAST: 6 mL of Isovue-300 SEDATION TIME: Was from 09:18 a.m. to 11:01 a.m. HEPARIN: None, protamine none. COMPLICATIONS: None. DRAINS: None. SPECIMENS: None. PROCEDURE: The patient was taken to the angiography suite, placed supine on the angiography table and then prepped and draped in a standard surgical fashion. Left common femoral artery was cannulated with a micropuncture needle. The catheter was advanced up and over the bifurcation and placed in the right common femoral artery and an angiogram was performed. This showed diffuse disease over the course the common femoral, superficial femoral and popliteal arteries. The popliteal artery was angioplastied and stented with a 7 x 120 Bailey drug-eluting stent, postdilated with a 6 x 200 balloon. The right superficial femoral artery was angioplastied and stented with a 7 x 120 Bailey drug-eluting stent, postdilated with a 6 x 200 balloon. The remainder of the common femoral and superficial femoral artery underwent angioplasty with a 6 x 200 balloon. A completion angiogram showed resolution of the stenoses and near occlusive lesions with good flow distally. The catheters and wires were removed and a Mynx closure device was used to close the arteriotomy in the left common femoral artery with an additional 10 minutes of adjunctive pressure applied for hemostasis. Dressings were then applied. The patient tolerated the procedure well. All instrument, sponge, and needle counts were correct at the end the case. There were no complications. Dr. Reyez was present for and directed the entire case. The patient was transferred to the holding area and subsequently discharged in stable condition.
== END 2019-03-27 14:55 | disposition home or self-care (01) | DRG 253 ==
LOC: M MSPAV 13:16
PROVIDERS: ADMIT Family Medicine; ATTEND Internal Medicine
PROC: 047K341 Dilation of Right Femoral Artery with Drug-eluting Intraluminal Device, using Drug-Coated Balloon, Percutaneous Approach (ICD-10-PCS; 2019-03-25)
PROC: 047M341 Dilation of Right Popliteal Artery with Drug-eluting Intraluminal Device, using Drug-Coated Balloon, Percutaneous Approach (ICD-10-PCS; principal; 2019-03-25 09:30)
DX: E11.52 Type 2 diabetes mellitus with diabetic peripheral angiopathy with gangrene (principal); I70.261 Atherosclerosis of native arteries of extremities with gangrene, right leg; L03.031 Cellulitis of right toe; I48.91 Unspecified atrial fibrillation; J44.9 Chronic obstructive pulmonary disease, unspecified; E78.5 Hyperlipidemia, unspecified; M10.9 Gout, unspecified; E11.621 Type 2 diabetes mellitus with foot ulcer; N18.9 Chronic kidney disease, unspecified; E11.21 Type 2 diabetes mellitus with diabetic nephropathy; E11.22 Type 2 diabetes mellitus with diabetic chronic kidney disease; L97.519 Non-pressure chronic ulcer of other part of right foot with unspecified severity; I10 Essential (primary) hypertension; K21.9 Gastro-esophageal reflux disease without esophagitis; E03.9 Hypothyroidism, unspecified; E83.42 Hypomagnesemia; Z95.0 Presence of cardiac pacemaker; Z79.01 Long term (current) use of anticoagulants; Z95.4 Presence of other heart-valve replacement; Z79.84 Long term (current) use of oral hypoglycemic drugs; Z79.899 Other long term (current) drug therapy; Z87.891 Personal history of nicotine dependence